=== PATIENT | female | born 1985 | race Caucasian/White ===

== ENCOUNTER 2020-07-23 21:40 | Outpatient (REF) | payer OTHER, SELFPAY ==
[2020-07-25 10:52] LABS: HIV-1/2 Ag & Ab Screen Negative (Negative)
[2020-07-27 09:18] LABS: HBs Antibody, Quant 3.4 mIU/mL (See Note); Hepatitis B Surface Ab Negative (See Note)
[2020-07-27 10:26] LABS: Hepatitis C Ab w Rflx HCV PCR Negative (Negative)
== END 2020-07-23 22:00 ==
LOC: LBN 21:40
PROVIDERS: PCP Nurse Practitioner Family; Visit Provider Physician Assistant Medical
DX: W46.1XXA Contact with contaminated hypodermic needle, initial encounter (principal); Z11.4 Encounter for screening for human immunodeficiency virus [HIV]; Z11.59 Encounter for screening for other viral diseases
CPT/HCPCS: 86706; 86803; 87389

== ENCOUNTER 2020-07-28 09:33 | Outpatient (REF) | payer OTHER, SELFPAY ==
[2020-07-29 10:31] LABS: Hep B Core Antibody Negative (Negative)
== END 2020-07-28 09:53 ==
LOC: LBO 09:33
PROVIDERS: Nurse Practitioner Family; PCP Nurse Practitioner Family
DX: Z11.59 Encounter for screening for other viral diseases (principal); W46.1XXA Contact with contaminated hypodermic needle, initial encounter
CPT/HCPCS: 36415; 86704

== ENCOUNTER 2020-09-09 03:45 | Outpatient (CLI) | payer OTHER, SELFPAY ==
[2020-09-09 16:55] LABS: HIV 1/2 Ab Rapid Negative (Negative)
[2020-09-11 10:23] LABS: HBs Antibody, Quant 47.1 mIU/mL (See Note); Hepatitis B Surface Ab Positive (See Note)
[2020-09-11 10:47] LABS: Hepatitis C Ab w Rflx HCV PCR Negative (Negative)
== END 2020-09-09 03:46 | disposition home or self-care (01) ==
LOC: LBO 03:46
PROVIDERS: PCP Nurse Practitioner Family; Visit Provider Nurse Practitioner Family
DX: Z77.21 Contact with and (suspected) exposure to potentially hazardous body fluids (principal); Z11.4 Encounter for screening for human immunodeficiency virus [HIV]; Z11.59 Encounter for screening for other viral diseases
CPT/HCPCS: 36415; 86706; 86803

== ENCOUNTER 2020-11-18 03:17 | Outpatient (CLI) | payer OTHER, SELFPAY ==
[2020-11-18 16:23] LABS: HIV 1/2 Ab Rapid Negative (Negative)
== END 2020-11-18 03:18 | disposition home or self-care (01) ==
LOC: LBO 03:17
PROVIDERS: PCP Nurse Practitioner Family; Visit Provider Nurse Practitioner Family
DX: Z11.4 Encounter for screening for human immunodeficiency virus [HIV] (principal); Z77.21 Contact with and (suspected) exposure to potentially hazardous body fluids
CPT/HCPCS: 36415

== ENCOUNTER 2021-06-01 03:42 | Outpatient (CLI) | payer OTHER, SELFPAY ==
[2021-06-03 10:35] LABS: Hepatitis C Ab w Rflx HCV PCR Negative (Negative)
== END 2021-06-01 03:43 | disposition home or self-care (01) ==
LOC: LBO 03:42
PROVIDERS: PCP Nurse Practitioner Family; Visit Provider Nurse Practitioner Family
DX: Z77.21 Contact with and (suspected) exposure to potentially hazardous body fluids (principal)
CPT/HCPCS: 36415; 86803